=== PATIENT | male | born 1975 | race African-American/Black ===

== ENCOUNTER 2022-03-31 08:54 | Inpatient (IN) ==
[2022-03-31 09:12] VITALS: BP 89/49
[2022-03-31] MEDS ORDERED: SODIUM CHLORIDE 0.9% 1,000 ML IV STA ×3 (09:39→11:05)
[2022-03-31] MEDS ORDERED: ONDANSETRON 4 MG/2 ML VIAL IV STA (09:39)
[2022-03-31 09:49] LABS: Basophils % 0.2 % (0.0-0.8); Hemoglobin 9.3 GM/DL (14.0-18.0); Immature Granulocytes % 3.2 %; Lymphocytes # 0.6 10*3/uL (1.4-4.0); Monocytes % 5.2 % (1.7-12.7); NRBC # 0.02 10*3/uL; Neutrophils % 88.4 % (38.7-73.9); Platelet Count 275 T/CUMM (130-400); Red Blood Count 3.53 MC/CUMM (3.8-5.5); Red Cell Distribution Width 16.8 % (9.3-17.3); White Blood Count 18.9 T/CUMM (4-12)
[2022-03-31 10:06] LABS: Albumin 2.8 G/DL (3.4-5.0); Bilirubin,Total 2.4 MG/DL (0.20-1.00); Calcium 8.6 MG/DL (8.5-10.1); Osmolality,Calculated 281.5 MOS/KG (273-304)
[2022-03-31 10:12] LABS: Band Neutrophils 8 % (0-10); Hypochromia Slight; Lymphocytes 4 % (20-55); Microcytosis Slight; Platelet Estimate Adequate; Total Cells Counted 100
[2022-03-31] MEDS ORDERED: MORPHINE 2 MG/1 ML SYRINGE IV STA (11:13)
[2022-03-31] MEDS ORDERED: PIPERACILLIN/TAZOBACTAM 3,375 MG in SODIUM CHLORIDE 0.9% 100 ML IV STA (11:30)
[2022-03-31] MEDS ORDERED: ALBUTEROL 2.5 MG/3 ML NEB RESP TX PRN (11:37)
[2022-03-31] MEDS ORDERED: ALUMINUM/MAGNES/SIMETH MAX STR 30 ML UDCUP PO PRN (11:47)
[2022-03-31] MEDS ORDERED: GLUCAGON 1 MG VIAL IM PRN (11:47)
[2022-03-31] MEDS ORDERED: VANCOMYCIN INJ 1,000 MG in SODIUM CHLORIDE 0.9% 250 ML IV STA (12:03)
[2022-03-31] MEDS ORDERED: DEXTROSE 10% 250 ML BAG IV PRN (12:03)
[2022-03-31] MEDS: POTASSIUM CHLORIDE 20 MEQ TABLET PO SCH (12:15)
[2022-03-31] MEDS: ENOXAPARIN 30 MG/0.3 ML SYRINGE SUBCUT SCH (12:30)
[2022-03-31 13:11] LABS: Bacteria,Urine Many /HPF (Few); Granular Casts,Urine 3 /LPF (0-1); Hyaline Casts,Urine 5 /LPF (0-3); Mucus,Urine Occasional /LPF (Occasional); RBC,Urine 6 /HPF (0-4); Squamous Epithelial Cell,Urine Occasional /HPF (0-10)
[2022-03-31 13:12] LABS: Glucose,Urine (UA) Negative (Negative); Ketones,Urine Negative (Negative); Nitrite,Urine Negative (Negative); Protein,Urine 100 mg/dL (Negative); Urine Appearance Cloudy (Clear); Urine Color Yellow (Yellow); Urine Specific Gravity 1.015 (1.001-1.035)
[2022-03-31 13:13] LABS: Bilirubin,Urine Small mg/dL (Negative); Blood, Urine Large mg/dL (Negative)
[2022-03-31] MEDS ORDERED: ACETAMINOPHEN 325 MG TABLET ONE (13:51)
[2022-03-31] MEDS ORDERED: ACETAMINOPHEN 325 MG TABLET PO ONE (13:55)
[2022-03-31] MEDS ORDERED: LEVOFLOXACIN INJ 750 MG/150 ML PREMIX IV SCH (14:00)
[2022-03-31] MEDS: POTASSIUM CHLORIDE INJ 20 MEQ in LACTATED RINGERS 1,000 ML IV SCH ×2 (14:26→21:21)
[2022-03-31] MEDS: MORPHINE 2 MG/1 ML SYRINGE IV PRN (15:25)
[2022-03-31 15:49] LABS: Bacteria,Urine Many /HPF (Few); Glucose,Urine (UA) Negative (Negative); Ketones,Urine Negative (Negative); Mucus,Urine Occasional /LPF (Occasional); Nitrite,Urine Negative (Negative); Protein,Urine 100 mg/dL (Negative); RBC,Urine 19 /HPF (0-4); Squamous Epithelial Cell,Urine Occasional /HPF (0-10); Urine Appearance Clear (Clear); Urine Color Yellow (Yellow)
[2022-03-31 15:50] LABS: Bilirubin,Urine Negative (Negative); Blood, Urine Large mg/dL (Negative)
[2022-03-31] MEDS: NOREPINEPHRINE DRIP 8 MG/250 ML PREMIX IV PRN ×2 (16:13→21:50)
[2022-03-31] MEDS: ONDANSETRON 4 MG/2 ML VIAL IV PRN (16:24)
[2022-03-31] MEDS: INSULIN LISPRO 100 UNIT/ML SUBCUT SCH ×2 (17:41→20:41)
[2022-03-31] MEDS: PIPERACILLIN/TAZOBACTAM 3,375 MG in SODIUM CHLORIDE 0.9% 100 ML IV SCH (20:40)
[2022-03-31] MEDS: traZODone 50 MG TABLET PO SCH (20:40)
[2022-03-31] MEDS: diphenhydrAMINE CAP 25 MG CAPSULE PO SCH (20:40)
[2022-03-31] MEDS: MELATONIN 3 MG TABLET PO SCH (20:41)
[2022-04-01] MEDS: MORPHINE 2 MG/1 ML SYRINGE IV PRN (01:35)
[2022-04-01] MEDS: ONDANSETRON 4 MG/2 ML VIAL IV PRN ×3 (01:38→20:38)
[2022-04-01 04:22] LABS: Basophils # 0.2 10*3/uL (0.0-0.2); Basophils % 0.7 % (0.0-0.8); Hematocrit 34.2 VOL% (42.0-52.0); Hemoglobin 10.6 GM/DL (14.0-18.0); Immature Granulocytes % 11.6 %; Lymphocytes # 1.5 10*3/uL (1.4-4.0); Lymphocytes % 7.1 % (21.2-54.2); Mean Corpuscular Volume 83.8 FL (87-102); Mean Platelet Volume 9.9 FL (9.6-12.0); Monocytes # 1.4 10*3/uL (0.11-0.8); Monocytes % 6.4 % (1.7-12.7); Neutrophils % 74.2 % (38.7-73.9); Platelet Count 198 T/CUMM (130-400); Red Blood Count 4.08 MC/CUMM (3.8-5.5); Red Cell Distribution Width 16.8 % (9.3-17.3); White Blood Count 21.5 T/CUMM (4-12)
[2022-04-01] MEDS: NOREPINEPHRINE DRIP 8 MG/250 ML PREMIX IV PRN ×2 (04:27→17:30)
[2022-04-01 04:45] LABS: Band Neutrophils 11 % (0-10); Hypochromia Slight; Lymphocytes 4 % (20-55); Microcytosis Slight; Platelet Estimate Adequate; Total Cells Counted 100
[2022-04-01] MEDS: POTASSIUM CHLORIDE INJ 20 MEQ in LACTATED RINGERS 1,000 ML IV SCH ×3 (04:50→20:37)
[2022-04-01] MEDS: PIPERACILLIN/TAZOBACTAM 3,375 MG in SODIUM CHLORIDE 0.9% 100 ML IV SCH ×3 (04:50→20:15)
[2022-04-01 04:57] LABS: Albumin 2.5 G/DL (3.4-5.0); Bilirubin,Total 2.8 MG/DL (0.20-1.00); Calcium 7.6 MG/DL (8.5-10.1); Osmolality,Calculated 288.3 MOS/KG (273-304); Potassium 3.6 MMOL/L (3.5-5.1); Thyroid Stimulating Hormone 1.27 uIU/ml (0.358-3.74); Total Protein 6.7 G/DL (6.4-8.2)
[2022-04-01] MEDS: INSULIN LISPRO 100 UNIT/ML SUBCUT SCH ×4 (07:33→20:37)
[2022-04-01] MEDS ORDERED: MAGNESIUM SULF RIDER 2 GM/50 ML PREMIX IV ONE (07:38)
[2022-04-01] MEDS: ENOXAPARIN 30 MG/0.3 ML SYRINGE SUBCUT SCH (13:17)
[2022-04-01] MEDS: LEVOFLOXACIN INJ 750 MG/150 ML PREMIX IV SCH (14:25)
[2022-04-01] MEDS: ASPIRIN EC 81 MG TABLET PO SCH (15:48)
[2022-04-01] MEDS: FEXOFENADINE 180 MG TABLET PO SCH (15:48)
[2022-04-01] MEDS: POTASSIUM CHLORIDE 20 MEQ TABLET PO SCH (15:48)
[2022-04-01] MEDS: PANTOPRAZOLE 40 MG TABLET PO SCH (15:48)
[2022-04-01] MEDS: SODIUM HYPOCHLORITE 0.25% IRRIG 473 ML BOTTLE TOP SCH ×2 (15:52→20:38)
[2022-04-01] MEDS ORDERED: ZINC OXIDE PASTE 113 GM TUBE TOP PRN (15:56)
[2022-04-01] MEDS: ACETIC ACID 0.25% IRRIGATION 1,000 ML BOTTLE IRRIG SCH (20:37)
[2022-04-01] MEDS: diphenhydrAMINE CAP 25 MG CAPSULE PO SCH (20:37)
[2022-04-01] MEDS: traZODone 50 MG TABLET PO SCH (20:37)
[2022-04-01] MEDS: MELATONIN 3 MG TABLET PO SCH (20:38)
[2022-04-01] MEDS ORDERED: SODIUM HYPOCHLORITE 0.25% IRRIG 473 ML BOTTLE TOP SCH (21:00)
[2022-04-02 04:23] LABS: Basophils # 0.1 10*3/uL (0.0-0.2); Basophils % 0.3 % (0.0-0.8); Eosinophils % 0.1 % (0.00-10.9); Hematocrit 31.6 VOL% (42.0-52.0); Hemoglobin 9.9 GM/DL (14.0-18.0); Immature Granulocytes % 0.6 %; Immature Granulocytes Absolute 0.13 #; Lymphocytes % 9.5 % (21.2-54.2); Mean Corpuscular HGB Conc 31.3 GM/DL (32-36); Mean Corpuscular Volume 84.5 FL (87-102); Monocytes # 1.5 10*3/uL (0.11-0.8); Monocytes % 7.1 % (1.7-12.7); NRBC # 0.04 10*3/uL; Neutrophils % 82.4 % (38.7-73.9); Platelet Count 180 T/CUMM (130-400); Red Blood Count 3.74 MC/CUMM (3.8-5.5); White Blood Count 21.2 T/CUMM (4-12)
[2022-04-02 04:33] LABS: INR 1.8; PT Patient Result 19.2 SECS (10.1-12.1)
[2022-04-02] MEDS: PIPERACILLIN/TAZOBACTAM 3,375 MG in SODIUM CHLORIDE 0.9% 100 ML IV SCH ×3 (04:38→19:34)
[2022-04-02] MEDS: POTASSIUM CHLORIDE INJ 20 MEQ in LACTATED RINGERS 1,000 ML IV SCH (04:39)
[2022-04-02 04:47] LABS: Albumin 2.2 G/DL (3.4-5.0); Bilirubin,Total 1.6 MG/DL (0.20-1.00); Calcium 8.5 MG/DL (8.5-10.1); Osmolality,Calculated 281.4 MOS/KG (273-304); Potassium 3.5 MMOL/L (3.5-5.1); Total Protein 6.2 G/DL (6.4-8.2)
[2022-04-02 04:52] LABS: Band Neutrophils 1 % (0-10); Hypochromia Slight; Lymphocytes 9 % (20-55); Microcytosis Slight; Platelet Estimate Adequate; Total Cells Counted 100
[2022-04-02] MEDS: INSULIN LISPRO 100 UNIT/ML SUBCUT SCH ×4 (08:10→21:45)
[2022-04-02] MEDS: LACTATED RINGERS 1,000 ML IV SCH (08:24)
[2022-04-02] MEDS: ENOXAPARIN 40 MG/0.4 ML SYRINGE SUBCUT SCH (08:24)
[2022-04-02] MEDS: ACETIC ACID 0.25% IRRIGATION 1,000 ML BOTTLE IRRIG SCH ×2 (12:01→21:45)
[2022-04-02] MEDS: POTASSIUM CHLORIDE 20 MEQ TABLET PO SCH (12:02)
[2022-04-02] MEDS: SODIUM HYPOCHLORITE 0.25% IRRIG 473 ML BOTTLE TOP SCH ×2 (12:02→21:45)
[2022-04-02] MEDS: PANTOPRAZOLE 40 MG TABLET PO SCH (12:02)
[2022-04-02] MEDS: ASPIRIN EC 81 MG TABLET PO SCH (12:02)
[2022-04-02] MEDS: FEXOFENADINE 180 MG TABLET PO SCH (12:02)
[2022-04-02] MEDS: LEVOFLOXACIN INJ 750 MG/150 ML PREMIX IV SCH (15:00)
[2022-04-02] MEDS: FLUTICASONE 50 MCG NASAL SPRAY 16 GM BOTTLE BOTH NARES SCH (17:44)
[2022-04-02] MEDS: diphenhydrAMINE CAP 25 MG CAPSULE PO SCH (21:45)
[2022-04-02] MEDS: traZODone 50 MG TABLET PO SCH (21:45)
[2022-04-02] MEDS: MELATONIN 3 MG TABLET PO SCH (21:45)
[2022-04-02] MEDS: ACETAMINOPHEN 500 MG TABLET PO PRN (22:17)
[2022-04-03] MEDS: PIPERACILLIN/TAZOBACTAM 3,375 MG in SODIUM CHLORIDE 0.9% 100 ML IV SCH ×2 (04:10→13:49)
[2022-04-03] MEDS: LACTATED RINGERS 1,000 ML IV SCH (04:10)
[2022-04-03 05:03] LABS: Basophils # 0.1 10*3/uL (0.0-0.2); Basophils % 0.6 % (0.0-0.8); Eosinophils # 0.2 10*3/uL (0.0-0.87); Eosinophils % 1.2 % (0.00-10.9); Hematocrit 34.4 VOL% (42.0-52.0); Hemoglobin 10.5 GM/DL (14.0-18.0); Immature Granulocytes % 2.2 %; Immature Granulocytes Absolute 0.32 #; Lymphocytes # 2.5 10*3/uL (1.4-4.0); Lymphocytes % 17.3 % (21.2-54.2); Mean Corpuscular HGB Conc 30.5 GM/DL (32-36); Mean Corpuscular Volume 85.1 FL (87-102); Monocytes # 1.1 10*3/uL (0.11-0.8); Monocytes % 7.7 % (1.7-12.7); NRBC # 0.03 10*3/uL; Platelet Count 181 T/CUMM (130-400); Red Blood Count 4.04 MC/CUMM (3.8-5.5); White Blood Count 14.6 T/CUMM (4-12)
[2022-04-03 05:25] LABS: Albumin 2.1 G/DL (3.4-5.0); Bilirubin,Total 0.8 MG/DL (0.20-1.00); Calcium 8.6 MG/DL (8.5-10.1); Osmolality,Calculated 279.4 MOS/KG (273-304); Potassium 4.1 MMOL/L (3.5-5.1); Total Protein 6.1 G/DL (6.4-8.2)
[2022-04-03 05:43] LABS: Band Neutrophils 2 % (0-10); Hypochromia Slight; Lymphocytes 21 % (20-55); Metamyelocytes 1 %; Microcytosis Slight; Nucleated Red Blood Cells 2 /100 WBC (0-5); Total Cells Counted 100
[2022-04-03 05:44] LABS: Platelet Estimate Adequate
[2022-04-03] MEDS: PANTOPRAZOLE 40 MG TABLET PO SCH (08:22)
[2022-04-03] MEDS: POTASSIUM CHLORIDE 20 MEQ TABLET PO SCH (08:22)
[2022-04-03] MEDS: ENOXAPARIN 40 MG/0.4 ML SYRINGE SUBCUT SCH (08:22)
[2022-04-03] MEDS: ASPIRIN EC 81 MG TABLET PO SCH (08:22)
[2022-04-03] MEDS: SODIUM HYPOCHLORITE 0.25% IRRIG 473 ML BOTTLE TOP SCH ×2 (08:22→21:12)
[2022-04-03] MEDS: FEXOFENADINE 180 MG TABLET PO SCH (08:22)
[2022-04-03] MEDS: INSULIN LISPRO 100 UNIT/ML SUBCUT SCH ×4 (08:32→20:49)
[2022-04-03] MEDS: FLUTICASONE 50 MCG NASAL SPRAY 16 GM BOTTLE BOTH NARES SCH (08:33)
[2022-04-03] MEDS: ACETIC ACID 0.25% IRRIGATION 1,000 ML BOTTLE IRRIG SCH ×2 (13:01→21:12)
[2022-04-03] MEDS: ONDANSETRON 4 MG/2 ML VIAL IV PRN (13:49)
[2022-04-03] MEDS: ACETAMINOPHEN 500 MG TABLET PO PRN (13:49)
[2022-04-03] MEDS: LEVOFLOXACIN INJ 750 MG/150 ML PREMIX IV SCH (16:00)
[2022-04-03] MEDS: diphenhydrAMINE CAP 25 MG CAPSULE PO SCH (20:58)
[2022-04-03] MEDS: MELATONIN 3 MG TABLET PO SCH (20:58)
[2022-04-03] MEDS: traZODone 50 MG TABLET PO SCH (20:58)
[2022-04-04 05:47] LABS: Basophils # 0.1 10*3/uL (0.0-0.2); Basophils % 0.9 % (0.0-0.8); Eosinophils # 0.4 10*3/uL (0.0-0.87); Eosinophils % 2.7 % (0.00-10.9); Hematocrit 33.7 VOL% (42.0-52.0); Hemoglobin 10.4 GM/DL (14.0-18.0); Immature Granulocytes % 13.2 %; Immature Granulocytes Absolute 1.77 #; Lymphocytes # 2.8 10*3/uL (1.4-4.0); Lymphocytes % 21.1 % (21.2-54.2); Mean Corpuscular HGB Conc 30.9 GM/DL (32-36); Mean Platelet Volume 9.4 FL (9.6-12.0); Monocytes # 1.4 10*3/uL (0.11-0.8); Monocytes % 10.5 % (1.7-12.7); NRBC # 0.09 10*3/uL; Neutrophils % 51.6 % (38.7-73.9); Platelet Count 228 T/CUMM (130-400); Red Blood Count 4.06 MC/CUMM (3.8-5.5); White Blood Count 13.4 T/CUMM (4-12)
[2022-04-04 06:04] LABS: Calcium 8.8 MG/DL (8.5-10.1); Osmolality,Calculated 283.3 MOS/KG (273-304); Potassium 3.8 MMOL/L (3.5-5.1)
[2022-04-04 06:15] LABS: Band Neutrophils 8 % (0-10); Eosinophils 3 % (0-10); Lymphocytes 13 % (20-55); Metamyelocytes 2 %; Promyelocytes 1 %; Total Cells Counted 100
[2022-04-04 06:16] LABS: Hypochromia Slight; Microcytosis 1+
[2022-04-04] MEDS ORDERED: INSULIN GLARGINE 100 UNIT/ML SUBCUT SCH (08:18)
[2022-04-04] MEDS: INSULIN LISPRO 100 UNIT/ML SUBCUT SCH ×2 (09:18→12:36)
[2022-04-04] MEDS: ENOXAPARIN 40 MG/0.4 ML SYRINGE SUBCUT SCH (09:19)
[2022-04-04] MEDS: ASPIRIN EC 81 MG TABLET PO SCH (09:19)
[2022-04-04] MEDS: PANTOPRAZOLE 40 MG TABLET PO SCH (09:19)
[2022-04-04] MEDS: SODIUM HYPOCHLORITE 0.25% IRRIG 473 ML BOTTLE TOP SCH (09:19)
[2022-04-04] MEDS: FEXOFENADINE 180 MG TABLET PO SCH (09:19)
[2022-04-04] MEDS: POTASSIUM CHLORIDE 20 MEQ TABLET PO SCH (09:20)
[2022-04-04] MEDS: ACETIC ACID 0.25% IRRIGATION 1,000 ML BOTTLE IRRIG SCH (09:22)
[2022-04-04] MEDS: FLUTICASONE 50 MCG NASAL SPRAY 16 GM BOTTLE BOTH NARES SCH (09:23)
== END 2022-04-04 12:50 | disposition home health service (06) | DRG 862 ==
LOC: N.ED 08:54 → SUATTDRO 11:37 → N.EDINP 11:37 → N.ICU 14:02
PROVIDERS: ADMIT Internal Medicine; ATTEND Family Medicine